=== PATIENT | female | born 1940 | race Caucasian/White ===

== ENCOUNTER 2017-03-05 10:23 | Outpatient (CLI) | payer OTHER ==
--- NOTE | 2017-03-05 11:34 | DIAGNOSTIC IMAGING REPORT ---
PROCEDURE: MG BILATERAL SCREENING W/CAD INDICATION: SCREENING TECHNIQUE: Bilateral CC and MLO digital views. COMPARISON: Comparison is made to prior studies from [facility] breast [place] on 12/25/2010, 11/25/2009, and 08/24/2008. FINDINGS: Computer-aided detection applied. Moderately dense with a few dystrophic calcifications. No evidence of mass or suspicious calcification. Left pacemaker partially obscures left axilla. IMPRESSION: 1. Negative mammogram. RESULT CODE: 1- Negative. A. A negative report should not delay biopsy if a dominant or clinically suspicious mass is present. 10-15% of cancers are not identified by x-ray. B. A negative report may reinforce clinical impression. C. Adenosis and dense breasts may obscure an underlying neoplasm. D. False positive reports average 6-10%. E.. A yearly screening mammogram is recommended. A reminder letter will be scheduled.
--- NOTE | 2017-03-05 11:34 | DIAGNOSTIC IMAGING REPORT ---
PROCEDURE: MG BILATERAL SCREENING W/CAD INDICATION: SCREENING TECHNIQUE: Bilateral CC and MLO digital views. COMPARISON: Comparison is made to prior studies from [facility] breast [place] on 12/25/2010, 11/25/2009, and 08/24/2008. FINDINGS: Computer-aided detection applied. Moderately dense with a few dystrophic calcifications. No evidence of mass or suspicious calcification. Left pacemaker partially obscures left axilla. IMPRESSION: 1. Negative mammogram. RESULT CODE: 1- Negative. A. A negative report should not delay biopsy if a dominant or clinically suspicious mass is present. 10-15% of cancers are not identified by x-ray. B. A negative report may reinforce clinical impression. C. Adenosis and dense breasts may obscure an underlying neoplasm. D. False positive reports average 6-10%. E.. A yearly screening mammogram is recommended. A reminder letter will be scheduled.
--- NOTE | 2017-03-05 11:36 | DIAGNOSTIC IMAGING REPORT ---
PROCEDURE: DEXA BONE DENSITY STUDY CLINICAL INDICATION: OSTEPENIA COMPARISON: None. FINDINGS: LUMBAR SPINE: Bone mineral density 1.037 g/cm2, T score -0.1 normal LEFT HIP: Bone mineral density 1.037 g/cm2, T score 0.8 normal LEFT FEMORAL NECK: Bone mineral density 0.725 g/cm2, T score -1.1 osteopenia FRACTURE RISK CALCULATION ( when applicable): 10-year fracture risk of a major osteoporotic fracture 14% and of a hip fracture 2% (T score greater or equal to -1.0 to: NORMAL) (T score from -1.1 to -2.4: OSTEOPENIA) (T score ess than or equal to -2.5: OSTEOPOROSIS) IMPRESSION: 1. 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
== END 2017-03-05 23:00 ==
LOC: MAM SRH 10:23
DX: M85.862 Other specified disorders of bone density and structure, left lower leg (principal); Z12.31 Encounter for screening mammogram for malignant neoplasm of breast